=== PATIENT | female | born 1970 | race Caucasian/White ===

== ENCOUNTER → 2017-11-24 | Outpatient (CLI) | payer OTHER | LOC: FIMAGING 13:36 | PROVIDERS: ATTEND Obstetrics & Gynecology | DX: Z12.31 Encounter for screening mammogram for malignant neoplasm of breast (principal) | CPT/HCPCS: G0202 ==

== ENCOUNTER 2018-05-27 21:44 | Emergency (ER) | payer OTHER ==
--- NOTE | 2018-05-27 22:01 | CPEKG ---
Heart Rate: 58 RR Interval: 1034 P-R Interval: 172 QRSD Interval: 84 QT Interval: 436 QTC Interval: 429 P Durham: 71 QRS Durham: 26 T Wave Durham: 50 EKG Severity - NORMAL ECG - EKG Impression: SINUS RHYTHM Electronically Signed By: Dilia Castillo 28-May-2018 07:08:59
[2018-05-27 22:17] LABS: PLATELET COUNT 234 10^3/uL (150-400)
--- NOTE | 2018-05-27 22:30 | EDPHY ---
H & P Stated Complaint: L CP RADIATING L NECK, AND JAW Time Seen by Provider: 05/27/18 22:00 HPI/ROS: HPI The patient presents with chest pain which began at approximately 7:30 p.m. Tonight while seated in a movie theater. She describes the pain in her anterior left chest as throbbing and pulsating. It became associated with numbness throughout her left neck. Chest pain is now subsided, though she does continue to have numbness in her neck. She is also describing some tightness within her shoulder joint. She does not have any shortness of breath, nausea, vomiting, dizziness, diaphoresis. Two months ago she had a similar episode. She was seen by her primary care doctor who diagnosed her with muscle spasm. 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 She is currently not on any anticoagulation. Her brother about 1 year ago after an allergic reaction related to anesthesia. REVIEW OF SYSTEMS Constitutional: No fever, no chills. Eyes: No discharge. ENT: No sore throat. Cardiovascular: Positive for chest pain, no palpitations. Respiratory: No cough, no shortness of breath. Gastrointestinal: No abdominal pain, no vomiting. Genitourinary: No hematuria. Musculoskeletal: No back pain. Skin: No rashes. Neurological: No headache. PMHx: Unprovoked DVT of right upper extremity, endometriosis Soc Hx: Here with her , nonsmoker FHx: No CAD PHYSICAL General Appearance: Alert, tearful at times Eyes: Pupils equal and round no pallor or injection ENT, Mouth: Mucous membranes moist Chest wall: There is left anterior chest wall tenderness Respiratory: There are no retractions, lungs are clear to auscultation Cardiovascular: Regular rate and rhythm Gastrointestinal: Abdomen is soft and non-tender, no masses, bowel sounds normal Neurological: A&O, moves all extremities Skin: Warm and dry, no rashes Musculoskeletal: Neck is supple non tender Extremities: symmetrical, full range of motion Psychiatric: Patient is oriented X 3, there is no agitation Source: Patient Exam Limitations: No limitations - Personal History LMP (Females 10-55): Unknown Current Tetanus Diphtheria and Acellular Pertussis (TDAP): Yes - Medical/Surgical History Hx Asthma: No Hx Chronic Respiratory Disease: No Hx Diabetes: No Hx Cardiac Disease: No Hx Renal Disease: No Hx Cirrhosis: No Hx Alcoholism: No Hx HIV/AIDS: No Hx Splenectomy or Spleen Trauma: No Other PMH: Endometriosis, ACL repair, Left UE DVT, bulging disc L3-L4 and L4-L5. - Social History Smoking Status: Never smoked Constitutional: Initial Vital Signs Temperature (C) 36.3 C 05/27/18 21:46 Heart Rate 63 05/27/18 21:46 Respiratory Rate 16 05/27/18 21:46 Blood Pressure 154/97 H 05/27/18 21:46 O2 Sat (%) 100 05/27/18 21:46 O2 Delivery Mode Room Air Allergies/Adverse Reactions: epinephrine Allergy (Verified 05/27/18 21:45) Home Medications: Medication Instructions Recorded NK [No Known Home Meds] 05/27/18 Medical Decision Making - Diagnostics EKG Interpretation: EKG: Complete interpretation has been separately recorded in the [employer] archive. Summary impression: Normal sinus rhythm, no ST segment changes Imaging Results: Imaging Impressions Chest X-Ray 05/27/18 22:28 Impression: No evidence of acute cardiopulmonary abnormality. Imaging: Discussed imaging studies w/ commercial instructor supervisor Radiologist, I viewed and interpreted images myself Differential Diagnosis: This is a 47-year-old female who has a history of unprovoked DVT of upper extremity presents with left-sided chest pain associated with numbness of her neck. Chest pain is now subsided. EKG is normal. Differential diagnosis includes pulmonary embolism, ACS, muscle strain, pneumothorax. In the emergency department, chest x-ray, troponin, D-dimer, CBC and metabolic panel were all normal. Patient's symptoms subsided. I suspect her pain is related to muscle strain. I doubt any serious etiology at this point. Patient feels reassured by her testing. I have explained, given that this is her 2nd episode, she should follow up with her primary care doctor to see if any provocative testing is warranted. However, I do not think this needs to be obtained emergently. She is comfortable with this plan and will be discharged home. - Data Points Laboratory Results: Laboratory Results 05/27/18 22:10 05/27/18 22:10 05/27/18 05/27/18 05/27/18 22:13 22:10 22:10 WBC RBC Hgb Hct MCV MCH MCHC RDW Plt Count MPV Neut % (Auto) Lymph % (Auto) Ritchie % (Auto) Eos % (Auto) Baso % (Auto) Nucleat RBC Rel Count Absolute Neuts (auto) Absolute Lymphs (auto) Absolute Monos (auto) Absolute Eos (auto) Absolute Basos (auto) Absolute Nucleated RBC Immature Gran % Immature Gran # D-Dimer 0.27 ug/mLFEU ug/mLFEU (0.00-0.50) Sodium 136 mEq/L mEq/L (135-145) Potassium 3.7 mEq/L mEq/L (3.3-5.0) Chloride 99 mEq/L mEq/L (97-110) Carbon Dioxide 28 mEq/l mEq/l (22-31) Anion Gap 9 mEq/L mEq/L (8-16) BUN 10 mg/dL mg/dL (7-23) Creatinine 0.7 mg/dL mg/dL (0.6-1.0) Estimated GFR > 60 Glucose 83 mg/dL mg/dL (70-100) Calcium 9.5 mg/dL mg/dL (8.5-10.4) POC Troponin I 0.01 ng/mL ng/mL (0.00-0.08) 05/27/18 22:10 WBC 4.34 10^3/uL 10^3/uL (3.80-9.50) RBC 4.61 10^6/uL 10^6/uL (4.18-5.33) Hgb 13.4 g/dL g/dL (12.6-16.3) Hct 40.3 % % (38.0-47.0) MCV 87.4 fL fL (81.5-99.8) MCH 29.1 pg pg (27.9-34.1) MCHC 33.3 g/dL g/dL (32.4-36.7) RDW 15.2 % % (11.5-15.2) Plt Count 234 10^3/uL 10^3/uL (150-400) MPV 9.9 fL fL (8.7-11.7) Neut % (Auto) 39.9 % % (39.3-74.2) Lymph % (Auto) 41.0 % % (15.0-45.0) Ritchie % (Auto) 14.3 % H % (4.5-13.0) Eos % (Auto) 2.5 % % (0.6-7.6) Baso % (Auto) 2.3 % H % (0.3-1.7) Nucleat RBC Rel Count 0.0 % % (0.0-0.2) Absolute Neuts (auto) 1.73 10^3/uL 10^3/uL (1.70-6.50) Absolute Lymphs (auto) 1.78 10^3/uL 10^3/uL (1.00-3.00) Absolute Monos (auto) 0.62 10^3/uL 10^3/uL (0.30-0.80) Absolute Eos (auto) 0.11 10^3/uL 10^3/uL (0.03-0.40) Absolute Basos (auto) 0.10 10^3/uL 10^3/uL (0.02-0.10) Absolute Nucleated RBC 0.00 10^3/uL 10^3/uL (0-0.01) Immature Gran % 0.0 % % (0.0-1.1) Immature Gran # 0.00 10^3/uL 10^3/uL (0.00-0.10) D-Dimer Sodium Potassium Chloride Carbon Dioxide Anion Gap BUN Creatinine Estimated GFR Glucose Calcium POC Troponin I Point of Care Test Results: Chemistry 05/27/18 22:13 POC Troponin I 0.01 ng/mL ng/mL (0.00-0.08) Departure - Departure Disposition: Home, Routine, Self-Care Clinical Impression: Chest pain Condition: Good Instructions: Chest Pain (ED), Chest Wall Pain (ED) Additional Instructions: The cause of your chest pain is not entirely clear. This could be related to a muscle. We have ruled out any sign of heart attack, blood clot to the lung, pneumonia. I would like for you to follow up with your primary care doctor to see if any stress testing is needed. You should return to the emergency department if your worse in any way. Referrals: Konstantin Albrecht MD [Primary Care Provider] - As per Instructions
[2018-05-27 23:35] VITALS: BP 111/71
== END 2018-05-27 23:35 | disposition home or self-care (01) ==
DX: R07.9 Chest pain, unspecified (principal)
CPT/HCPCS: 84484-PO

== ENCOUNTER → 2018-10-05 | Outpatient (CLI) | payer OTHER | LOC: FIMAGING 06:50 | PROVIDERS: ATTEND Internal Medicine | DX: R10.11 Right upper quadrant pain (principal); K83.9 Disease of biliary tract, unspecified; K76.0 Fatty (change of) liver, not elsewhere classified ==

== ENCOUNTER → 2018-10-11 | Outpatient (CLI) | payer OTHER ==
[~2018-10-11] MED LIST: IOPAMIDOL (ISOVUE-300) 100 ML BTL ONE
== END ==
LOC: FIMAGING 08:21
PROVIDERS: ATTEND Internal Medicine
DX: R10.11 Right upper quadrant pain (principal); K59.00 Constipation, unspecified
CPT/HCPCS: Q9967

== ENCOUNTER → 2018-11-20 | Outpatient (CLI) | payer OTHER | LOC: FIMAGING 07:13 | PROVIDERS: ATTEND Obstetrics & Gynecology | DX: D25.1 Intramural leiomyoma of uterus (principal) ==